=== PATIENT | female | born 1945 ===

== ENCOUNTER 2021-05-07 10:53 | Emergency (ER) | payer SELFPAY ==
--- NOTE | 2021-05-07 11:12 | Event Note ---
ED Screening Note ED Screening Note: Language interpretation by patient's son with her permission and by Ms. Edward, security support analyst Patient is a 76-year-old female who presents emergency room with complaints of chest pain and shortness of breath she has a history of A. fib and is on Eliquis She denies any fever, vomiting, diarrhea, cough This initial assessment/diagnostic orders/clinical plan/treatment(s) is/are subject to change based on patients health status, clinical progression and re- assessment by fellow clinical providers in the ED. Further treatment and workup at subsequent clinical providers discretion. Patient/guardian urged not to elope from the ED as their condition may be serious if not clinically assessed and managed. Initial orders include: Chest pain protocol
[2021-05-07 11:48] LABS: Basophils % (Auto) 0.4 % (0.0-1.8); Eosinophils % (Auto) 0.3 % (0.0-4.3); Hematocrit 29.4 % (30.3-42.9); Hemoglobin 9.5 gm/dl (10.1-14.3); Lymphocytes % (Auto) 13.5 % (13.4-35.0); Mean Corpuscular HGB Conc 32 % (30-34); Mean Corpuscular Volume 96 fl (79-97); Monocytes # (Auto) 0.6 K/mm3 (0.0-0.8); Monocytes % (Auto) 8.4 % (0.0-7.3); Platelet Count 286 K/mm3 (140-440); Red Blood Count 3.06 M/mm3 (3.65-5.03); Red Cell Distribution Width 16.8 % (13.2-15.2)
--- NOTE | 2021-05-07 11:49 | XRay Report ---
CHEST 2 VIEWS INDICATION: Chest Pain. COMPARISON: None FINDINGS: SUPPORT DEVICES: None. HEART: Mild cardiomegaly. LUNGS/PLEURA: Mild interstitial edema. No consolidation or effusion. No pneumothorax. ADDITIONAL FINDINGS: None. IMPRESSION: 1. Mild cardiomegaly with mild interstitial edema. Signer Name: Fabian Du MD Signed: 05/07/2021 11:44 AM Workstation Name: [id number]
[2021-05-07 12:00] LABS: INR 2.24 (0.87-1.13); Partial Thromboplastin Time 34.1 Sec. (24.2-36.6)
[2021-05-07] MEDS ORDERED: dilTIAZem 25 MG/5 ML INJ IV ONE (12:01)
--- NOTE | 2021-05-07 12:07 | Emergency Department Report ---
ED Shortness of Breath HPI - General Chief Complaint: Dyspnea/Respdistress Stated Complaint: SHORT OF BREATH Time Seen by Provider: 05/07/21 11:10 Source: patient Mode of arrival: Ambulatory Limitations: No Limitations - History of Present Illness Initial Comments: Patient is 76 years old female, . Translation by Annel. Patient brought to the emergency room by her son. Patient initially went to an urgent care and found that she has atrial fibrillation with RVR and sent to the emergency room for further management. Patient stated that her symptoms started 3 days with irregular heartbeat and shortness of breath. She also stated that she has diffuse chest pain not localized. Patient also has a bilateral lower extremity edema. Patient denied any fever or chills. Patient stated that she was diagnosed in [place] with arrhythmia and started on Eliquis. MD Complaint: shortness of breath, chest pain -: days(s) (2) Severity: moderate - Related Data Allergies Allergy/AdvReac Type Severity Reaction Status Date / Time No Known Allergies Allergy Unverified 05/07/21 11:05 ED Review of Systems ROS: Stated complaint: SHORT OF BREATH Other details as noted in HPI Comment: All other systems reviewed and negative Constitutional: denies: chills, fever Respiratory: orthopnea, shortness of breath, SOB with exertion, SOB at rest. denies: wheezing Cardiovascular: chest pain, palpitations, dyspnea on exertion, orthopnea, paroxysmal nocturnal dyspnea Gastrointestinal: denies: abdominal pain, nausea, vomiting, diarrhea, constipation, hematemesis, melena Musculoskeletal: denies: back pain Neurological: weakness. denies: headache, numbness, paresthesias, confusion ED Past Medical Hx - Past Medical History Hx Hypertension: Yes Hx Diabetes: Yes Additional medical history: high cholesterol, A fib - Surgical History Past Surgical History?: Yes Additional Surgical History: hyst? ED Physical Exam - General Limitations: No Limitations General appearance: alert, in distress - Head Head exam: Present: atraumatic, normocephalic, normal inspection - Eye Eye exam: Present: normal appearance, PERRL - ENT ENT exam: Present: normal exam, normal orophraynx, mucous membranes moist - Neck Neck exam: Present: normal inspection, full ROM. Absent: tenderness, meningismus - Respiratory Respiratory exam: Present: respiratory distress, rales, decreased breath sounds. Absent: wheezes, accessory muscle use, prolonged expiratory - Cardiovascular Cardiovascular Exam: Present: regular rate, normal rhythm, normal heart sounds - GI/Abdominal GI/Abdominal exam: Present: soft, normal bowel sounds. Absent: distended, tenderness, guarding, rebound, rigid, organomegaly, mass, bruit, pulsatile mass, hernia - Extremities Exam Extremities exam: Present: pedal edema - Back Exam Back exam: Present: normal inspection, full ROM. Absent: CVA tenderness (R), CVA tenderness (L) - Neurological Exam Neurological exam: Present: alert, oriented X3, CN II-XII intact - Psychiatric Psychiatric exam: Present: normal mood - Skin Skin exam: Present: warm, intact, normal color ED Course Vital Signs 05/07/21 05/07/21 12:15 13:33 Pulse Rate 130 H 111 H Blood Pressure 118/88 126/108 ED Medical Decision Making - Lab Data Result diagrams: 05/07/21 11:40 05/07/21 11:40 - Radiology Data Radiology results: report reviewed - Medical Decision Making Patient is 76 years old female, . Translation by Ms. Up. Patient brought to the emergency room by her son. Patient initially went to an urgent care and found that she has atrial fibrillation with RVR and sent to the emergency room for further management. Patient stated that her symptoms started 3 days with irregular heartbeat and shortness of breath. She also stated that she has diffuse chest pain not localized. Patient also has a bilateral lower extremity edema. Patient denied any fever or chills. Patient stated that she was diagnosed in [place] with arrhythmia and started on Eliquis. EKG showed atrial fibrillation with RVR heart rate of 140. Patient received Cardizem 10 mg IV and started on Cardizem drip at 5 mg/h. Chest x-ray showed pulmonary edema consistent with CHF. Patient received Lasix 40 mg IV. I discu ssed the patient with Dr. Baca, he agreed to admit the patient to medical service for further management. Critical Care Time: Yes Critical care time in (mins) excluding proc time.: 30 Critical care attestation.: If time is entered above; I have spent that time in minutes in the direct care of this critically ill patient, excluding procedure time. ED Disposition Clinical Impression: New onset of congestive heart failure, Atrial fibrillation with RVR Disposition: OP ADMIT IP TO THIS HOSP Is pt being admited?: Yes Condition: Stable
[2021-05-07 12:14] LABS: Alanine Aminotransferase 209 units/L (7-56); Albumin 3.9 g/dL (3.9-5); BUN/Creatinine Ratio 34; Blood Urea Nitrogen 31 mg/dL (7-17); Hemolysis Index 7
[2021-05-07] MEDS ORDERED: FUROSEMIDE 40 MG/4 ML INJ IV ONE (12:28)
[2021-05-07] MEDS ORDERED: dilTIAZem/D5W 100 MG/100 ML BAG IV SCH (13:00)
--- NOTE | 2021-05-07 13:53 | History and Physical Report ---
History of Present Illness History of present illness: 76 YO Female with HTN, DM, HLD, Paroxysmal Atrial Fib Patient is 76 years old female, . Translation by Ms. Up. Patient brought to the emergency room by her son. Patient initially went to an urgent care and found that she has atrial fibrillation with RVR and sent to the emergency room for further management. Patient stated that her symptoms started 3 days with irregular heartbeat and shortness of breath. She also stated that she has diffuse chest pain not localized. Patient also has a bilateral lower extremity edema. Patient denied any fever or chills. Patient stated that she was diagnosed in [place] with arrhythmia and started on Eliquis. Complaint: shortness of breath, chest pain -: days(s) (2) Severity: moderate - Related Data Allergies Allergy/AdvReac Type Severity Reaction Status Date / Time No Known Allergies Allergy Unverified 05/07/21 11:05 ED Review of Systems ROS: Stated complaint: SHORT OF BREATH Other details as noted in HPI Comment: All other systems reviewed and negative Constitutional: denies: chills, fever Respiratory: orthopnea, shortness of breath, SOB with exertion, SOB at rest. denies: wheezing Cardiovascular: chest pain, palpitations, dyspnea on exertion, orthopnea, paroxysmal nocturnal dyspnea Gastrointestinal: denies: abdominal pain, nausea, vomiting, diarrhea, constipation, hematemesis, melena Musculoskeletal: denies: back pain Neurological: weakness. denies: headache, numbness, paresthesias, confusion ED Past Medical Hx - Past Medical History Hx Hypertension: Yes Hx Diabetes: Yes Additional medical history: high cholesterol, A fib - Surgical History Past Surgical History?: Yes Additional Surgical History: hyst? Medications and Allergies Allergies Allergy/AdvReac Type Severity Reaction Status Date / Time No Known Allergies Allergy Unverified 05/07/21 11:05 Active Meds: Active Medications Diltiazem HCl (Cardizem/D5w 100mg/100ml) 100 mg in 100 mls @ 5 mls/hr IV TITR DAMARIS; Protocol Last Admin: 05/07/21 13:33 Dose: 5 mg/hr, 5 mls/hr Documented by: Exam - Constitutional Vitals: Temp Pulse Resp BP Pulse Ox 111 H 126/108 05/07/21 13:33 05/07/21 13:33 HEART Score - HEART Score Troponin: Troponin T < 0.010 ng/mL (0.00-0.029) 05/07/21 11:40 Results - Labs CBC & Chem 7: 05/07/21 11:40 05/07/21 11:40 Labs: Abnormal lab results 05/07/21 05/07/21 05/07/21 Range/Units 11:40 11:40 11:40 RBC 3.06 L (3.65-5.03) M/mm3 Hgb 9.5 L (10.1-14.3) gm/dl Hct 29.4 L (30.3-42.9) % RDW 16.8 H (13.2-15.2) % [place] % (Auto) 8.4 H (0.0-7.3) % Lymph # (Auto) 1.0 L (1.2-5.4) K/mm3 Seg Neutrophils % 77.4 H (40.0-70.0) % PT 25.1 H (12.2-14.9) Sec. INR 2.24 H (0.87-1.13) Sodium 133 L (137-145) mmol/L Potassium 5.4 H (3.6-5.0) mmol/L Carbon Dioxide 18 L (22-30) mmol/L BUN 31 H (7-17) mg/dL Glucose 161 H (65-100) mg/dL Total Bilirubin 1.40 H (0.1-1.2) mg/dL AST 208 H (5-40) units/L ALT 209 H (7-56) units/L Alkaline Phosphatase 152 H (35-129) units/L NT-Pro-B Natriuret Pep 4171 H (0-900) pg/mL
--- NOTE | 2021-05-07 14:59 | Event Note ---
Date: 05/07/21 76 YO Female with Atrial Fib on therapeutic anticoagulation, DM, HTN present to ED for evaluation. Patient seen and evaluated in the emergency department. All lab and imaging studies reviewed. Patient complained of chest discomfort secondary to palpitations. Patient treated with rate control with resolution of symptoms. Patient acknowledges medication noncompliance due to lack of rate control medication. Patient therapeutically anticoagulated with Eliquis. Patient medically optimized and back to usual state of health. Patient dischar ged home instructed to follow-up with primary care physician within 3 to 5 days. And to follow-up with cardiology as needed. ED Physical Exam - General Limitations: No Limitations General appearance: alert, in distress - Head Head exam: Present: atraumatic, normocephalic, normal inspection - Eye Eye exam: Present: normal appearance, PERRL - ENT ENT exam: Present: normal exam, normal orophraynx, mucous membranes moist - Neck Neck exam: Present: normal inspection, full ROM. Absent: tenderness, meningismus - Respiratory Respiratory exam: Present: respiratory distress, rales, decreased breath sounds. Absent: wheezes, accessory muscle use, prolonged expiratory - Cardiovascular Cardiovascular Exam: Present: regular rate, normal rhythm, normal heart sounds - GI/Abdominal GI/Abdominal exam: Present: soft, normal bowel sounds. Absent: distended, tenderness, guarding, rebound, rigid, organomegaly, mass, bruit, pulsatile mass, hernia - Extremities Exam Extremities exam: Present: pedal edema - Back Exam Back exam: Present: normal inspection, full ROM. Absent: CVA tenderness (R), CVA tenderness (L) - Neurological Exam Neurological exam: Present: alert, oriented X3, CN II-XII intact - Psychiatric Psychiatric exam: Present: normal mood - Skin Skin exam: Present: warm, intact, normal color
[2021-05-07] MEDS ORDERED: APIXABAN 5 MG TAB PO SCH (15:00)
[2021-05-07 15:07] LABS: INR 2.25 (0.87-1.13); Partial Thromboplastin Time 34.8 Sec. (24.2-36.6)
[2021-05-07] MEDS ORDERED: dilTIAZem 30 MG TAB PO ONE (15:30)
[2021-05-07] MEDS ORDERED: SODIUM BICARB 8.4% 50 MEQ/50 ML SYRINGE IV ONE (16:00)
[2021-05-07 16:41] VITALS: BP 109/82
--- NOTE | 2021-05-09 17:52 | Electrocardiograph Report ---
[facility] Test Date: 2021-05-07 Test Time: 11:16:09 Pat Name: LUIS CARLOS PALENCIA Department: Room: Gender: F [employer]: LAINEY : 1945 Requested By: ELMER ROSEN Order Number: [id number] Reading MD: Sandra Pate Measurements Intervals [place] Rate: 140 P: VT: QRS: 92 QRSD: 63 T: 71 QT: 281 QTc: 429 Interpretive Statements Rapid atrial fibrillation Right axis deviation Low voltage, precordial leads Consider old anteroseptal infarct No previous ECG available for comparison Electronically Signed On 05-09-2021 17:51:59 EDT by Sandra Pate
== END 2021-05-07 18:21 | disposition admitted as inpatient to this hospital (09) ==
LOC: ED 10:53
DX: I11.0 Hypertensive heart disease with heart failure (principal); I50.9 Heart failure, unspecified; I48.91 Unspecified atrial fibrillation; E11.9 Type 2 diabetes mellitus without complications; E78.00 Pure hypercholesterolemia, unspecified
CPT/HCPCS: 36415; 71046; 80053; 83880; 84484; 85025; 85610; 85730; 93005; 96365; 96366; 96375; 99284; J1940